=== PATIENT | female | born 1995 | race Hispanic/Latino ===

== ENCOUNTER 2018-11-16 08:13 | Inpatient (IN) | payer OTHER ==
[2018-11-16] MEDS ORDERED: BUTORPHANOL 1 MG/ML INJ IV PRN (08:51)
[2018-11-16] MEDS ORDERED: METHYLERGONOVINE 0.2MG/ML AMP IM PRN (08:51)
[2018-11-16] MEDS ORDERED: PROMETHAZINE 25 MG/ML VIAL IV PRN (08:51)
[2018-11-16] MEDS ORDERED: CARBOPROST TROME 250 MCG/ML IM PRN (08:51)
[2018-11-16] MEDS ORDERED: Ringers Lactate 1,000 ML IV PRN (08:51)
[2018-11-16] MEDS ORDERED: Ringers Lactate 1,000 ML IV SCH (09:00)
[2018-11-16] MEDS ORDERED: OXYTOCIN/LR 20 UNIT/1,000 ML BAG IV SCH (09:00)
[2018-11-16 09:30] LABS: RPR Titer ND
[2018-11-16 09:33] LABS: Urine Appearance CLEAR; Urine Bilirubin NEGATIVE (NEG); Urine Blood NEGATIVE (NEG); Urine Color YELLOW; Urine Glucose NEGATIVE (NEG); Urine Protein NEGATIVE (NEG); Urine Specific Gravity 1.025 (1.005-1.030); Urine Urobilinogen 0.2 mg/dL (0.2-1.0)
[2018-11-16 09:34] LABS: Urine Microscopic Reflex NO UMIC
[2018-11-16 09:35] LABS: Absolute Lymphocytes (CBC) 3.5 K/uL (0.7-4.9); Absolute Monocytes 1.1 K/uL (0.1-1.3); Absolute Neutrophil 9.7 K/uL (1.8-8.0); Basophils % 0.6 % (0-1.3); Hematocrit 33.6 % (36.0-45.0); Lymphocytes % 24.4 % (15.3-44.8); MPV 9.1 fL (7.6-11.3); Monocytes % 7.3 % (3.3-12.3); RBC Red Blood Cell Count 3.94 M/uL (3.86-4.86)
--- NOTE | 2018-11-16 09:51 | P.PN ---
Date of Service: 11/16/18 Patient is a 22 y/o at 39 weeks gestation admitted for elective induction of labor. Patient is not experiencing consistent contractions. She reports good movements. She denies vaginal bleeding. See H&P for further details. Vital signs stable. Laboratory Tests 11/16/18 08:45 WBC 14.5 H Hgb 10.9 L Hct 33.6 L Plt Count 340 GEN: resting comfortably in bed Head/Neck: NCAT/Supple Resp: symmetric, non-labored breathing ABD: gravid Pelvic: normal external female genitalia; vagina pink moist & normal rugae; Cervix is 1-2cm, 50% effaced, -3 station; AROM performed and clear fluid noted EXT: no edema Patient is a 22 y/o at 39 weeks gestation admitted for elective induction of labor. AROM performed. Continuous maternal monitoring. Pitocin for labor augmentation. Epidural placement at patient's request.
[2018-11-16 10:43] VITALS: BMI 32.3
[2018-11-16] MEDS ORDERED: ROPIVACAINE HCL 100 ML IV PRN (11:47)
[2018-11-16] MEDS ORDERED: FENTANYL CITR 100 MCG/2 ML IV ONE ×3 (11:49→15:00)
[2018-11-16] MEDS ORDERED: ROPIVACAINE HCL 0.2% 20ML AMP IV ONE (11:49)
--- NOTE | 2018-11-16 19:04 | P.PN ---
Date of Service: 11/16/18 Patient is a 22 y/o at 39 weeks gestation admitted for elective induction of labor. Patient is not having relief from her epidural. Recommended that we contact anesthesia and see if the epidural can be re-done since it ordered been redosed. The patient increased and will move forward with that plan. Vital signs stable General: Resting in bed in moderate pain distress Abdomen gravid heart rate tracing baseline heart rate 135, moderate variability category 2 tracing [place]: Contractions every 3-5 min Vaginal exam: 4 cm dilated 60% effaced, minus 3 station midline presentation Assessment 22-year-old at 39 weeks gestation admitted for elective induction of labor. Rupture of membranes has been performed. Patient is GBS negative. Epidural will be redone. Continue Pitocin for labor augmentation. Orders given to increase Pitocin to 26.
[2018-11-16] MEDS ORDERED: ROPIVACAINE HCL 20 ML ONE (19:28)
[2018-11-16] MEDS ORDERED: LIDOCAINE 2% INJ, 20 mL 0 ML ONE (21:00)
[2018-11-16] MEDS ORDERED: METHYLERGONOVINE 0.2MG/ML AMP IM ONE (21:01)
[2018-11-16] MEDS ORDERED: ONDANSETRON 4 MG (ODT) TAB PO PRN (21:24)
[2018-11-16] MEDS ORDERED: METHYLERGONOVINE 0.2 MG TAB PO PRN (21:24)
[2018-11-16] MEDS ORDERED: DOCUSATE NA/SENNA CONC 1 TAB PO PRN (21:24)
[2018-11-16] MEDS ORDERED: ACETAMINOPHEN 500 MG TAB PO PRN (21:24)
[2018-11-16] MEDS ORDERED: Oxycodone HCl/Acetaminophen 1 TAB TAB PO PRN (21:24)
[2018-11-16] MEDS ORDERED: BISACODYL 10 MG RECTAL SUPP RECT PRN (21:24)
--- NOTE | 2018-11-16 21:32 | P.OP ---
Date of Service: 11/16/18 Findings and Operative Technique Patient delivery a viable male in cephalic presentation on 11/16/18 at 9: 08 p.m.. Infant was delivered over a midline episiotomy. Nuchal cord x 1 was manually reduced. Once delivered nose and mouth were suctioned with a suction bulb. Cord was clamped and cut and infant was placed on mother's abdomen for skin to skin bonding. Cord blood was obtained. Placenta was then delivered with gentle traction at 9:11 p.m. Placenta was noted to be intact. Uterus was massaged and was found to be firm. Attention was then turned to the episiotomy which was repained with a 2.0 vicryl in usual fashion. Estimated blood loss was 200 cc. Apgars were 9 and 9. Weight was found to be 7 lb 5 oz. 1st stage of labor was 11 hr 17 min. 2nd stage was 25 min. Both mom and baby are doing well both are afebrile. Plan is to discharge patient home in 24 hr.
[2018-11-17 00:09] LABS: RPR (Rapid Plasma Reagin) NON-REACT (NON-REACT)
[2018-11-17] MEDS: Oxycodone HCl/Acetaminophen 1 TAB TAB PO PRN ×2 (00:44→11:40)
[2018-11-17 04:36] LABS: Absolute Monocytes 1.4 K/uL (0.1-1.3); Absolute Neutrophil 14.8 K/uL (1.8-8.0); Basophils % 0.3 % (0-1.3); Eosinophils % 0.3 % (0-4.4); Hematocrit 32.1 % (36.0-45.0); Lymphocytes % 15.6 % (15.3-44.8); MPV 8.6 fL (7.6-11.3); Monocytes % 7.2 % (3.3-12.3); RBC Red Blood Cell Count 3.74 M/uL (3.86-4.86)
[2018-11-17] MEDS: IBUPROFEN 200 MG TAB PO PRN ×2 (07:21→17:35)
[2018-11-18] MEDS: IBUPROFEN 200 MG TAB PO PRN (03:10)
[2018-11-18 07:13] VITALS: BP 121/69; TEMP 98.4
[2018-11-19 23:18] LABS: HBsAG Nonreactive (Nonreactive)
== END 2018-11-18 09:35 | disposition home or self-care (01) | DRG 807 ==
LOC: 2ND-WC 08:13
PROVIDERS: ADMIT Student in an Organized Health Care Education/Training Program; ATTEND Student in an Organized Health Care Education/Training Program
PROC: 10E0XZZ Delivery of Products of Conception, External Approach (ICD-10-PCS; principal; 2018-11-16)
PROC: 3E0P7VZ Introduction of Hormone into Female Reproductive, Via Natural or Artificial Opening (ICD-10-PCS; 2018-11-16)
PROC: 10907ZC Drainage of Amniotic Fluid, Therapeutic from Products of Conception, Via Natural or Artificial Opening (ICD-10-PCS; 2018-11-16)
PROC: 0W8NXZZ Division of Female Perineum, External Approach (ICD-10-PCS; 2018-11-16)
DX: O69.81X0 Labor and delivery complicated by cord around neck, without compression, not applicable or unspecified (principal); Z37.0 Single live birth; Z3A.39 39 weeks gestation of pregnancy; Z88.0 Allergy status to penicillin
CPT/HCPCS: 36415; 81003; 85025; 86592; 86850; 86900; 86901; 87340; J0595; J2210; J2550; J2590; J2795; J3010